=== PATIENT | female | born 1985 | race Caucasian/White ===

== ENCOUNTER 2016-12-31 10:30 | Emergency (ER) | payer MEDICAID, OTHER | END 2016-12-31 14:05 | disposition left against medical advice (07) | LOC: ER 10:30 | DX: R51 Headache (principal); Z53.21 Procedure and treatment not carried out due to patient leaving prior to being seen by health care provider ==

== ENCOUNTER 2017-07-02 03:01 | Emergency (ER) | payer MEDICAID ==
[~2017-07-02] VITALS: Ht 157.5 cm; Wt 56.0 kg
[2017-07-02 03:11] VITALS: BP 126/72
== END 2017-07-02 04:42 | disposition left against medical advice (07) ==
LOC: ER 03:01
DX: R10.9 Unspecified abdominal pain (principal); Z53.21 Procedure and treatment not carried out due to patient leaving prior to being seen by health care provider